=== PATIENT | female | born 1970 | race Caucasian/White ===

== ENCOUNTER 2020-08-18 20:30 | Emergency (ER) | payer MEDICARE ==
[~2020-08-18] VITALS: Ht 167.6 cm; Wt 56.7 kg
[2020-08-18] MEDS ORDERED: METHOTREXATE2.5 MG PO (20:46)
[2020-08-18] MEDS ORDERED: FOLIC ACID1 MG PO (20:46)
[2020-08-18] MEDS ORDERED: NEURONTIN100 MG PO (20:46)
[2020-08-18] MEDS ORDERED: NORVASC5 MG PO (20:47)
== END 2020-08-19 00:07 | disposition home or self-care (01) ==
LOC: ED 20:30
DX: S09.90XA Unspecified injury of head, initial encounter (principal); S16.1XXA Strain of muscle, fascia and tendon at neck level, initial encounter; W06.XXXA Fall from bed, initial encounter; F17.200 Nicotine dependence, unspecified, uncomplicated; Z88.8 Allergy status to other drugs, medicaments and biological substances; Z79.899 Other long term (current) drug therapy
CPT/HCPCS: 70450; 72125; 99284-25